=== PATIENT | female | born 1995 ===

== ENCOUNTER 2019-05-19 18:26 | Emergency (ER) | payer SELFPAY ==
[~2019-05-19] VITALS: Ht 167.6 cm; Wt 61.4 kg
[2019-05-19 18:37] VITALS: BP 128/72
== END 2019-05-19 20:00 | disposition left against medical advice (07) ==
LOC: EMS 18:28
DX: R04.1 Hemorrhage from throat (principal); Z53.21 Procedure and treatment not carried out due to patient leaving prior to being seen by health care provider